=== PATIENT | male | born 1985 | race Caucasian/White ===

== ENCOUNTER 2024-04-17 20:11 | Inpatient (IN) | payer OTHER ==
[2024-04-17 21:44] VITALS: BMI 25.0
[2024-04-17] MEDS ORDERED: DICYCLOMINE HCL 10 MG CAPSULE PO PRN (21:58)
[2024-04-17] MEDS ORDERED: NICOTINE POLACRILEX 2 MG GUM BUC PRN (21:58)
[2024-04-17] MEDS ORDERED: BENZONATATE 200 MG CAPSULE PO PRN (21:58)
[2024-04-17] MEDS ORDERED: IBUPROFEN 400 MG TABLET (FP) PO PRN (21:58)
[2024-04-17] MEDS ORDERED: BENZOCAINE/MENTHOL (CHLORASEPTIC ) LOZENGE MM PRN (21:58)
[2024-04-17] MEDS ORDERED: guaiFENesin 600 MG TABLET.ER (FP) PO PRN (21:58)
[2024-04-17] MEDS ORDERED: POLYETHYLENE GLYCOL (HEALTHYLAX) 3350 17 GM PACKET PO PRN (21:58)
[2024-04-17] MEDS ORDERED: LOPERAMIDE HCL 2 MG CAPSULE PO PRN (21:58)
[2024-04-17] MEDS ORDERED: MAGNESIUM HYDROX 2400MG/30ML ORAL SUSPENSION 30 ML CUP PO PRN (21:58)
[2024-04-17] MEDS ORDERED: ONDANSETRON *ODT* 4 MG TABLET SL PRN (21:58)
[2024-04-17] MEDS ORDERED: MAG HYDROX/AL HYDROX/SIMETH 30 ML UNIT-DOSE CUP PO PRN (21:58)
[2024-04-17] MEDS ORDERED: NICOTINE POLACRILEX 2 MG LOZENGE BC PRN (21:58)
[2024-04-17] MEDS ORDERED: BISMUTH SUBSALICYLATE 524 MG/30 ML PO PRN (21:58)
[2024-04-17] MEDS ORDERED: chlordiazePOXIDE HCL 25 MG CAPSULE ONE (22:26)
[2024-04-17] MEDS ORDERED: MELATONIN 5 MG TABLETS ONE (22:27)
[2024-04-17] MEDS ORDERED: METOPROLOL TARTRATE 25 MG TABLET (FP) ONE (22:27)
[2024-04-17] MEDS: THIAMINE 100 MG TABLET PO SCH (22:35)
[2024-04-17] MEDS: MELATONIN 5 MG TABLETS PO SCH (22:35)
[2024-04-17] MEDS: METOPROLOL TARTRATE 25 MG TABLET (FP) PO ONE (22:35)
[2024-04-17] MEDS: chlordiazePOXIDE HCL 25 MG CAPSULE PO SCH (22:36)
[2024-04-17] MEDS: levETIRAcetam 500 MG TABLET (FP) PO SCH (23:02)
[2024-04-17] MEDS: METHOCARBAMOL 500 MG TABLET PO PRN (23:02)
[2024-04-17] MEDS: BACITRACIN 0.9 GM PACKET TP SCH (23:03)
[2024-04-17] MEDS: IBUPROFEN 600 MG TABLET (FP) PO PRN (23:24)
[2024-04-18] MEDS: chlordiazePOXIDE HCL 25 MG CAPSULE PO ONE (06:38)
[2024-04-18] MEDS: PRENATAL VITAMINS W/ FOLIC ACID TABLET (FP) PO SCH (10:35)
[2024-04-18 11:10] LABS: HEMATOCRIT 33.5 % (35.4-49); HEMOGLOBIN 11.5 GM/dL (11.7-16.9); MCH 32.8 pg (25.7-33.7); MCHC 34.3 g/dl (32.0-35.9); MEAN CELL VOLUME 95.8 fl (80-96); MEAN PLT VOLUME 7.1 fl (7.5-11.1); PLATELET COUNT 176 10^3/uL (134-434); RDW 13.3 % (11.9-15.9); WHITE BLOOD COUNT 6.9 K/mm3 (4.0-10.0)
[2024-04-18 11:13] LABS: CHLORIDE 105 mmol/L (98-107); SODIUM 143 mmol/L (136-145)
[2024-04-18 11:15] LABS: BLOOD UREA NITROGEN 7.4 mg/dL (7-18); CALCIUM 7.9 mg/dL (8.5-10.1); CO2 25 mmol/L (21-32); GLUCOSE,RANDOM 97 mg/dL (74-106)
[2024-04-18 11:16] LABS: ALBUMIN 3.3 g/dl (3.4-5.0)
[2024-04-18 11:18] LABS: CREATININE 0.6 mg/dL (0.55-1.3); SGOT/AST 48 U/L (15-37)
[2024-04-18 11:19] LABS: ANION GAP 13 mmol/L (4-13); POTASSIUM 2.8 mmol/L (3.5-5.1); SGPT/ALT 42 U/L (13-61)
[2024-04-18 11:20] LABS: TOT PROT 6.2 g/dl (6.4-8.2)
[2024-04-18 11:21] LABS: ALK PHOS 70 U/L (45-117); BILIRUBIN,TOTAL 0.6 mg/dL (0.2-1)
[2024-04-18] MEDS: chlordiazePOXIDE HCL 25 MG CAPSULE PO PRN (13:18)
[2024-04-18] MEDS: TRIMETHOBENZAMIDE HCL 200MG/2ML INJ IM ONE (15:07)
[2024-04-18] MEDS: POTASSIUM CHLORIDE ORAL LIQUID 20 MEQ/15 ML PO ONE ×2 (15:09→22:20)
[2024-04-18] MEDS: ACETAMINOPHEN 325 MG TABLET (FP) PO PRN (18:03)
[2024-04-18] MEDS: diazePAM 5 MG TABLET PO SCH (22:21)
[2024-04-19] MEDS ORDERED: chlordiazePOXIDE HCL 25 MG CAPSULE PO SCH (05:00)
[2024-04-19 11:24] LABS: CHLORIDE 100 mmol/L (98-107); SODIUM 137 mmol/L (136-145)
[2024-04-19 11:27] LABS: CALCIUM 8.4 mg/dL (8.5-10.1); POTASSIUM 2.7 mmol/L (3.5-5.1)
[2024-04-19 11:29] LABS: ANION GAP 12 mmol/L (4-13); BLOOD UREA NITROGEN 5.4 mg/dL (7-18); CO2 25 mmol/L (21-32); GLUCOSE,RANDOM 114 mg/dL (74-106)
[2024-04-19 11:33] LABS: CREATININE 0.6 mg/dL (0.55-1.3)
[2024-04-20] MEDS ORDERED: chlordiazePOXIDE HCL 10 MG CAPSULE PO PRN
[2024-04-20] MEDS ORDERED: chlordiazePOXIDE HCL 10 MG CAPSULE PO SCH (05:00)
[2024-04-20] MEDS: diazePAM 5 MG TABLET PO SCH (05:46)
[2024-04-20] MEDS: POTASSIUM CHLORIDE ORAL LIQUID 20 MEQ/15 ML PO ONE (13:47)
[2024-04-20] MEDS: SILVER SULFADIAZINE 1% TOP CREAM 50 GM JAR TP SCH (14:12)
[2024-04-20] MEDS: POTASSIUM CHLORIDE ORAL LIQUID 20 MEQ/15 ML PO SCH (22:19)
[2024-04-21] MEDS ORDERED: chlordiazePOXIDE HCL 10 MG CAPSULE PO SCH (05:00)
[2024-04-21] MEDS: diazePAM 5 MG TABLET PO SCH (05:52)
[2024-04-21 08:43] VITALS: RESP 18; TEMP 97.7
[2024-04-21 12:51] VITALS: BP 127/77; PULSE 62
[2024-04-21] MEDS: NALTREXONE HCL 50 MG TABLET PO SCH (15:18)
[2024-04-22] MEDS ORDERED: chlordiazePOXIDE HCL 10 MG CAPSULE PO ONE (05:00)
[2024-04-22] MEDS ORDERED: diazePAM 5 MG TABLET PO ONE (06:00)
== END 2024-04-21 15:27 | disposition home or self-care (01) | DRG 775 ==
LOC: YASAS 20:11 → Y3N 22:28
PROVIDERS: ADMIT Allergy & Immunology; ATTEND Surgery
PROC: HZ2ZZZZ Detoxification Services for Substance Abuse Treatment (ICD-10-PCS; principal; 2024-04-17)
DX: F10.230 Alcohol dependence with withdrawal, uncomplicated (principal); F17.210 Nicotine dependence, cigarettes, uncomplicated; E87.6 Hypokalemia; T22.211D Burn of second degree of right forearm, subsequent encounter; V43.52XD Car driver injured in collision with other type car in traffic accident, subsequent encounter; W22.11XD Striking against or struck by driver side automobile airbag, subsequent encounter
CPT/HCPCS: 36415; 80048; 80053; 80305; 80307; 84132; 85027; 86780; 93005; 93010

== ENCOUNTER 2024-04-19 16:14 | Emergency (ER) | payer OTHER ==
[2024-04-19 16:37] VITALS: TEMP 98.8
[2024-04-19 17:10] LABS: BASO % 0.3 % (0-2.0); EOS % 1.1 % (0-4.5); HEMATOCRIT 37.4 % (35.4-49); HEMOGLOBIN 12.8 GM/dL (11.7-16.9); LYMPH % 18.1 % (8-40); MCH 32.3 pg (25.7-33.7); MCHC 34.3 g/dl (32.0-35.9); MEAN CELL VOLUME 94.3 fl (80-96); MEAN PLT VOLUME 7.1 fl (7.5-11.1); MONO % 12.1 % (3.8-10.2); NEUT % 68.4 % (42.8-82.8); PLATELET COUNT 183 10^3/uL (134-434); RBC 3.97 M/mm3 (4.00-5.60); RDW 13.1 % (11.9-15.9); WHITE BLOOD COUNT 5.5 K/mm3 (4.0-10.0)
[2024-04-19 17:40] LABS: MAGNESIUM 1.4 mg/dL (1.8-2.4)
[2024-04-19] MEDS ORDERED: MAGNESIUM SULFATE IN WATER 2 GM/50 ML IVPB IVPB ONE (18:07)
[2024-04-19] MEDS ORDERED: POTASSIUM CHLORIDE ORAL LIQUID 20 MEQ/15 ML ONE (18:07)
[2024-04-19] MEDS ORDERED: ONDANSETRON 4 MG/2 ML VIAL ONE (18:07)
[2024-04-19] MEDS ORDERED: KCL 10 MEQ IVPB 10 MEQ/100 ML INFUS.BAG IVPB ONE (18:08)
[2024-04-19 18:12] LABS: ALBUMIN 3.4 g/dl (3.4-5.0); CREATININE 0.7 mg/dL (0.55-1.3)
[2024-04-19 18:15] LABS: SGOT/AST 68 U/L (15-37); SGPT/ALT 45 U/L (13-61)
[2024-04-19 18:17] LABS: BILIRUBIN,TOTAL 0.6 mg/dL (0.2-1); TOT PROT 6.6 g/dl (6.4-8.2)
[2024-04-19 18:18] LABS: ALK PHOS 55 U/L (45-117)
[2024-04-19] MEDS: MAGNESIUM SULFATE IN WATER 2 GM/50 ML IVPB IVPB ONE (18:28)
[2024-04-19] MEDS: ONDANSETRON 4 MG/2 ML VIAL IVPUSH ONE (18:28)
[2024-04-19] MEDS: POTASSIUM CHLORIDE ORAL LIQUID 20 MEQ/15 ML PO ONE (18:28)
[2024-04-19] MEDS: KCL 10 MEQ IVPB 10 MEQ/100 ML INFUS.BAG IVPB SCH (18:30)
[2024-04-19 19:58] LABS: BLOOD UREA NITROGEN 5.4 mg/dL (7-18); CALCIUM 8.8 mg/dL (8.5-10.1); CHLORIDE 101 mmol/L (98-107); CO2 26 mmol/L (21-32); GLUCOSE,RANDOM 104 mg/dL (74-106); POTASSIUM 3.2 mmol/L (3.5-5.1); SODIUM 139 mmol/L (136-145)
[2024-04-19 20:08] VITALS: BP 118/86; PULSE 72; RESP 14
[2024-04-19] MEDS ORDERED: KCL 10 MEQ IVPB 20 MEQ/200 ML INFUS.BAG IVPB ONE (20:14)
== END 2024-04-19 22:43 | disposition home or self-care (01) ==
LOC: JER 16:14
PROC: 3E033GC Introduction of Other Therapeutic Substance into Peripheral Vein, Percutaneous Approach (ICD-10-PCS; principal; 2024-04-19)
PROC: 3E033GC Introduction of Other Therapeutic Substance into Peripheral Vein, Percutaneous Approach (ICD-10-PCS; 2024-04-19)
DX: E87.6 Hypokalemia (principal); R53.1 Weakness; R11.0 Nausea
CPT/HCPCS: 36415; 80053; 83735; 85025; 93005; 93010; 99284-25

== ENCOUNTER 2024-07-05 18:30 | Inpatient (IN) | payer OTHER ==
[2024-07-05 19:15] VITALS: BMI 23.7
[2024-07-05] MEDS ORDERED: chlordiazePOXIDE HCL 25 MG CAPSULE PO PRN (19:38)
[2024-07-05] MEDS ORDERED: NALOXONE (NYS OPIOID OVERDOSE PROGRAM) 4 MG/0.1 ML SPRAY NS PRN (19:49)
[2024-07-05] MEDS ORDERED: BISMUTH SUBSALICYLATE 524 MG/30 ML PO PRN (19:49)
[2024-07-05] MEDS ORDERED: POLYETHYLENE GLYCOL (HEALTHYLAX) 3350 17 GM PACKET PO PRN (19:49)
[2024-07-05] MEDS ORDERED: IBUPROFEN 600 MG TABLET (FP) PO PRN (19:49)
[2024-07-05] MEDS ORDERED: IBUPROFEN 400 MG TABLET (FP) PO PRN (19:49)
[2024-07-05] MEDS ORDERED: guaiFENesin 600 MG TABLET.ER (FP) PO PRN (19:49)
[2024-07-05] MEDS ORDERED: hydrOXYzine PAMOATE 25 MG CAPSULE (FP) PO PRN (19:49)
[2024-07-05] MEDS ORDERED: BENZONATATE 200 MG CAPSULE PO PRN (19:49)
[2024-07-05] MEDS ORDERED: MAG HYDROX/AL HYDROX/SIMETH 30 ML UNIT-DOSE CUP PO PRN (19:49)
[2024-07-05] MEDS ORDERED: BENZOCAINE/MENTHOL (CHLORASEPTIC ) LOZENGE MM PRN (19:49)
[2024-07-05] MEDS ORDERED: DICYCLOMINE HCL 10 MG CAPSULE PO PRN (19:49)
[2024-07-05] MEDS ORDERED: ACETAMINOPHEN 325 MG TABLET (FP) PO PRN (19:49)
[2024-07-05] MEDS ORDERED: MAGNESIUM HYDROX 2400MG/30ML ORAL SUSPENSION 30 ML CUP PO PRN (19:49)
[2024-07-05] MEDS: ONDANSETRON *ODT* 4 MG TABLET SL PRN (20:11)
[2024-07-05] MEDS ORDERED: ONDANSETRON *ODT* 4 MG TABLET ONE (20:20)
[2024-07-05] MEDS ORDERED: chlordiazePOXIDE HCL 25 MG CAPSULE ONE (20:20)
[2024-07-05] MEDS: chlordiazePOXIDE HCL 25 MG CAPSULE PO ONE (20:22)
[2024-07-05] MEDS: METHOCARBAMOL 500 MG TABLET PO PRN (22:11)
[2024-07-05] MEDS: THIAMINE 100 MG TABLET PO SCH (22:12)
[2024-07-05] MEDS: levETIRAcetam 500 MG TABLET (FP) PO SCH (22:12)
[2024-07-05] MEDS: chlordiazePOXIDE HCL 25 MG CAPSULE PO SCH (22:12)
[2024-07-05] MEDS: MELATONIN 5 MG TABLETS PO SCH (22:12)
[2024-07-06] MEDS: PRENATAL VITAMINS W/ FOLIC ACID TABLET (FP) PO SCH (10:26)
[2024-07-06 14:35] LABS: HEMATOCRIT 34.7 % (35.4-49); HEMOGLOBIN 11.6 GM/dL (11.7-16.9); MCH 31.7 pg (25.7-33.7); MCHC 33.5 g/dl (32.0-35.9); MEAN CELL VOLUME 94.5 fl (80-96); MEAN PLT VOLUME 7.6 fl (7.5-11.1); PLATELET COUNT 128 10^3/uL (134-434); RBC 3.67 M/mm3 (4.00-5.60); RDW 14.1 % (11.9-15.9); WHITE BLOOD COUNT 3.5 K/mm3 (4.0-10.0)
[2024-07-06 15:13] LABS: POTASSIUM 3.9 mmol/L (3.5-5.1)
[2024-07-06 15:16] LABS: CALCIUM 9.7 mg/dL (8.5-10.1)
[2024-07-06 15:17] LABS: ALBUMIN 3.7 g/dl (3.4-5.0); BLOOD UREA NITROGEN 7.2 mg/dL (7-18)
[2024-07-06 15:21] LABS: CREATININE 0.8 mg/dL (0.55-1.3); TOT PROT 7.6 g/dl (6.4-8.2)
[2024-07-07] MEDS: chlordiazePOXIDE HCL 25 MG CAPSULE PO SCH (05:40)
[2024-07-08] MEDS ORDERED: chlordiazePOXIDE HCL 10 MG CAPSULE PO PRN
[2024-07-08] MEDS: chlordiazePOXIDE HCL 10 MG CAPSULE PO SCH (05:56)
[2024-07-08] MEDS: LOPERAMIDE HCL 2 MG CAPSULE PO PRN (15:34)
[2024-07-09] MEDS: chlordiazePOXIDE HCL 10 MG CAPSULE PO SCH (05:49)
[2024-07-10] MEDS: chlordiazePOXIDE HCL 10 MG CAPSULE PO ONE (05:48)
[2024-07-10 05:56] VITALS: RESP 16
[2024-07-10] MEDS: NALOXONE (NYS OPIOID OVERDOSE PROGRAM) 4 MG/0.1 ML SPRAY NS ONE (08:57)
[2024-07-10 09:11] VITALS: BP 123/79; PULSE 92; TEMP 97.5
== END 2024-07-10 09:04 | disposition home or self-care (01) | DRG 775 ==
LOC: YASAS 18:30 → Y3N 20:37
PROVIDERS: ADMIT Allergy & Immunology; ATTEND Allergy & Immunology
PROC: HZ2ZZZZ Detoxification Services for Substance Abuse Treatment (ICD-10-PCS; principal; 2024-07-05)
DX: F10.230 Alcohol dependence with withdrawal, uncomplicated (principal); F17.210 Nicotine dependence, cigarettes, uncomplicated; E87.6 Hypokalemia; R74.01 Elevation of levels of liver transaminase levels; Z86.69 Personal history of other diseases of the nervous system and sense organs; Z56.0 Unemployment, unspecified; Z59.00 Homelessness unspecified
CPT/HCPCS: 36415; 80053; 80305; 80307; 85027; Q0162

== ENCOUNTER 2024-08-05 11:34 | Inpatient (IN) | payer OTHER ==
[2024-08-05] MEDS ORDERED: POLYETHYLENE GLYCOL (HEALTHYLAX) 3350 17 GM PACKET PO PRN (13:02)
[2024-08-05] MEDS ORDERED: DICYCLOMINE HCL 10 MG CAPSULE PO PRN (13:02)
[2024-08-05] MEDS ORDERED: NALOXONE (NARCAN) HCL 4 MG/0.1 ML SPRAY NS PRN (13:02)
[2024-08-05] MEDS ORDERED: LOPERAMIDE HCL 2 MG CAPSULE PO PRN (13:02)
[2024-08-05] MEDS ORDERED: ACETAMINOPHEN 325 MG TABLET (FP) PO PRN (13:02)
[2024-08-05] MEDS ORDERED: BISMUTH SUBSALICYLATE 262 MG/15 ML BTL PO PRN (13:02)
[2024-08-05] MEDS ORDERED: BENZOCAINE/MENTHOL (CHLORASEPTIC ) LOZENGE MM PRN (13:02)
[2024-08-05] MEDS ORDERED: ONDANSETRON *ODT* 4 MG TABLET SL PRN (13:02)
[2024-08-05] MEDS ORDERED: guaiFENesin 600 MG TABLET.ER (FP) PO PRN (13:02)
[2024-08-05] MEDS ORDERED: IBUPROFEN 400 MG TABLET (FP) PO PRN (13:02)
[2024-08-05] MEDS ORDERED: MAGNESIUM HYDROX 2400MG/30ML ORAL SUSPENSION 30 ML CUP PO PRN (13:02)
[2024-08-05] MEDS ORDERED: BENZONATATE 200 MG CAPSULE PO PRN (13:02)
[2024-08-05 13:09] VITALS: BMI 24.8
[2024-08-05] MEDS ORDERED: hydrOXYzine PAMOATE 25 MG CAPSULE (FP) PO ONE (14:16)
[2024-08-05] MEDS: hydrOXYzine PAMOATE 25 MG CAPSULE (FP) PO PRN (14:18)
[2024-08-05] MEDS: chlordiazePOXIDE HCL 25 MG CAPSULE PO PRN (15:26)
[2024-08-05] MEDS: chlordiazePOXIDE HCL 25 MG CAPSULE PO SCH (17:30)
[2024-08-05] MEDS: HYDROCHLOROTHIAZIDE 25 MG TABLET (FP) PO ONE (17:30)
[2024-08-05] MEDS: GABAPENTIN 100 MG CAPSULE PO SCH (22:10)
[2024-08-05] MEDS: THIAMINE 100 MG TABLET PO SCH (22:10)
[2024-08-05] MEDS: MELATONIN 5 MG TABLETS PO SCH (22:10)
[2024-08-06] MEDS: PRENATAL VITAMINS W/ FOLIC ACID TABLET (FP) PO SCH (10:30)
[2024-08-06 12:09] LABS: HEMATOCRIT 35.7 % (35.4-49); HEMOGLOBIN 12.2 GM/dL (11.7-16.9); MCH 32.8 pg (25.7-33.7); MCHC 34.1 g/dl (32.0-35.9); MEAN CELL VOLUME 96.3 fl (80-96); MEAN PLT VOLUME 8.4 fl (7.5-11.1); PLATELET COUNT 176 10^3/uL (134-434); RDW 14.4 % (11.9-15.9); WHITE BLOOD COUNT 7.2 K/mm3 (4.0-10.0)
[2024-08-06 12:37] LABS: POTASSIUM 3.5 mmol/L (3.5-5.1)
[2024-08-06 12:40] LABS: ALBUMIN 4.1 g/dl (3.4-5.0); BLOOD UREA NITROGEN 3.5 mg/dL (7-18); CALCIUM 8.4 mg/dL (8.5-10.1)
[2024-08-06 12:43] LABS: CREATININE 0.6 mg/dL (0.55-1.3)
[2024-08-06 12:45] LABS: BILIRUBIN,TOTAL 0.5 mg/dL (0.2-1); TOT PROT 7.7 g/dl (6.4-8.2)
[2024-08-06] MEDS: amLODIPine BESYLATE 5 MG TABLET (FP) PO SCH (13:04)
[2024-08-06] MEDS: GABAPENTIN 100 MG CAPSULE PO SCH (13:04)
[2024-08-06] MEDS: levETIRAcetam 250 MG TABLET PO ONE (13:06)
[2024-08-06] MEDS: ACAMPROSATE CALCIUM 333 MG TABLET.DR PO SCH (14:12)
[2024-08-06] MEDS: levETIRAcetam 250 MG TABLET PO SCH (22:12)
[2024-08-06] MEDS: SUVOREXANT 10 MG TABLET PO PRN (22:13)
[2024-08-06] MEDS: IBUPROFEN 600 MG TABLET (FP) PO PRN (23:41)
[2024-08-07] MEDS: chlordiazePOXIDE HCL 25 MG CAPSULE PO SCH (05:58)
[2024-08-07] MEDS: MAG HYDROX/AL HYDROX/SIMETH 30 ML UNIT-DOSE CUP PO PRN (23:13)
[2024-08-08] MEDS: chlordiazePOXIDE HCL 10 MG CAPSULE PO SCH (05:53)
[2024-08-08] MEDS: chlordiazePOXIDE HCL 10 MG CAPSULE PO PRN (15:06)
[2024-08-08] MEDS: METHOCARBAMOL 500 MG TABLET PO PRN (15:10)
[2024-08-09] MEDS: chlordiazePOXIDE HCL 10 MG CAPSULE PO SCH (05:55)
[2024-08-09] MEDS: NALOXONE (NYS OPIOID OVERDOSE PROGRAM) 4 MG/0.1 ML SPRAY NS SCH (13:44)
[2024-08-10] MEDS: chlordiazePOXIDE HCL 10 MG CAPSULE PO ONE (05:00)
[2024-08-10] MEDS: NALOXONE (NYS OPIOID OVERDOSE PROGRAM) 4 MG/0.1 ML SPRAY NS SCH (08:48)
[2024-08-10 09:39] VITALS: BP 113/81; PULSE 65; RESP 16; TEMP 97.5
[2024-08-10] MEDS: amLODIPine BESYLATE 2.5 MG TABLET (FP) PO SCH (09:44)
== END 2024-08-10 09:50 | disposition home or self-care (01) | DRG 775 ==
LOC: YASAS 11:34 → Y6N 14:07
PROVIDERS: ADMIT Allergy & Immunology; ATTEND Surgery
PROC: HZ2ZZZZ Detoxification Services for Substance Abuse Treatment (ICD-10-PCS; principal; 2024-08-05)
DX: F10.230 Alcohol dependence with withdrawal, uncomplicated (principal); F10.282 Alcohol dependence with alcohol-induced sleep disorder; F10.280 Alcohol dependence with alcohol-induced anxiety disorder; F17.213 Nicotine dependence, cigarettes, with withdrawal; F41.9 Anxiety disorder, unspecified; I10 Essential (primary) hypertension; G40.909 Epilepsy, unspecified, not intractable, without status epilepticus; Z56.0 Unemployment, unspecified; Z59.00 Homelessness unspecified
CPT/HCPCS: 36415; 80053; 80307; 85027; 86780; 93005; 93010